=== PATIENT | female | born 1990 | race Hispanic/Latino ===

== ENCOUNTER 2016-11-15 07:08 | Emergency (ER) | payer OTHER ==
[~2016-11-15] VITALS: Ht 154.9 cm; Wt 60.0 kg
[~2016-11-15 07:08] MED LIST: ADVIL200 MG PO; BENTYL20 MG PO; CEFPODOXIME PR200 MG PO; CEPHALEXIN500 MG PO; CIPRO500 MG PO; ENDOCET 5-3251 EACH PO; FLAGYL500 MG PO; FLONASE16 G1 BOTH NARES; IBUPROFEN800 MG PO; KEFLEX500 MG PO; LORTAB 5-325 M1 EACH PO; MACROBID100 MG PO; METHERGINE0.2 MG PO; MUCUS ER600 MG PO; NAPROSYN500 MG PO; NAPROXEN500 MG PO; PERCOCET 5/31 TABLET PO; PRENA1 CHEW TA1.4 MG PO; PRENATAL + DHA1 EACH PO; PRENATAL TABLE1 EAC3 PO; PRILOSEC20 MG PO; ZOFRAN ODT4 MG PO; ZOFRAN ODT8 MG PO; ZOFRAN4 MG PO
[2016-11-15 08:07] LABS: ADD MIUA? YES; BILIRUBIN NEGATIVE; BLOOD SMALL; COLOR YELLOW ((YELLOW)); GLUCOSE (STRIP) NEGATIVE; KETONES NEGATIVE; LEUKOCYTES NEGATIVE; NITRITE NEGATIVE; PROTEIN (STRIP) NEGATIVE; SPECIFIC GRAVITY 1.021 (1.000-1.030); UROBILINOGEN 0.2 MG/DL (0.2-1.0)
[2016-11-15 08:14] LABS: BACTERIA 2+ /HPF; EPITHELIAL CELLS 1+ /HPF; MUCUS TRACE /LPF; RED BLOOD CELLS 0-5 /HPF (0-5)
[2016-11-15 08:24] LABS: HEMATOCRIT 35.3 % (36.0-46.0); MCH 29.4 PG (29.0-34.0); MCHC 32.9 G/DL (30.0-36.0); MCV 89.4 FL (83-99); MEAN PLAT.VOLUME 9.8 uM^3 (9.5-12.4); PLATELET COUNT 247 K/uL (156-360); RBC DIS.WIDTH-CV 12.4 % (11.8-14.6); RBC DIS.WIDTH-SD 40.9 % (39-53); RED BLOOD COUNT 3.95 M/uL (3.80-5.20); WHITE BLOOD COUNT 6.7 K/uL (4.1-10.2)
[2016-11-15 08:33] LABS: CHLORIDE 106 mEq/L (99-109); SODIUM 137 mEq/L (136-147)
[2016-11-15 08:35] LABS: GLUCOSE 100 mg/dL (70-99)
[2016-11-15 08:36] LABS: ANION GAP 7 MEQ/L (2-14)
[2016-11-15 08:37] LABS: TOTAL BILIRUBIN 0.3 mg/dL (0.0-1.0)
[2016-11-15 08:39] LABS: ALKALINE PHOSPHATASE 56 IU/L (3-129); GFR ESTIMATE (CALCULATED) > 59 mL/min/
[2016-11-15 08:40] LABS: UREA NITROGEN (BUN) 14 mg/dL (9-23)
[2016-11-15 08:42] LABS: LIPASE 19 U/L (1.0-51.0)
[2016-11-15 08:51] LABS: QUANTITATIVE HCG < 4.0 MIU/ML
[2016-11-15] MEDS ORDERED: ZOFRAN ODT4 MG PO (09:33)
[2016-11-15 09:40] VITALS: BP 95/59
== END 2016-11-15 09:41 | disposition home or self-care (01) ==
LOC: EME 07:08
PROVIDERS: Nurse Practitioner Family
DX: K59.00 Constipation, unspecified (principal); R10.9 Unspecified abdominal pain
CPT/HCPCS: 74020; 80053; 81003; 83690; 84702; 85027; 99281; 99284

== ENCOUNTER 2017-03-19 18:02 | Emergency (ER) | payer OTHER ==
[~2017-03-19] VITALS: Ht 157.5 cm; Wt 64.5 kg
[2017-03-19 19:07] LABS: ADD MIUA? YES; BILIRUBIN NEGATIVE; BLOOD SMALL; COLOR STRAW ((YELLOW)); GLUCOSE (STRIP) NEGATIVE; KETONES NEGATIVE; LEUKOCYTES NEGATIVE; NITRITE NEGATIVE; PROTEIN (STRIP) NEGATIVE; SPECIFIC GRAVITY 1.012 (1.000-1.030); UROBILINOGEN 0.2 MG/DL (0.2-1.0)
[2017-03-19 19:10] LABS: HEMATOCRIT 36.6 % (36.0-46.0); MCH 31.4 PG (29.0-34.0); MCHC 35.5 G/DL (30.0-36.0); MCV 88.4 FL (83-99); MEAN PLAT.VOLUME 9.1 uM^3 (9.5-12.4); PLATELET COUNT 301 K/uL (156-360); RBC DIS.WIDTH-CV 11.7 % (11.8-14.6); RBC DIS.WIDTH-SD 37.8 % (39-53); RED BLOOD COUNT 4.14 M/uL (3.80-5.20); WHITE BLOOD COUNT 13.2 K/uL (4.1-10.2)
[2017-03-19 19:13] LABS: BACTERIA RARE /HPF; EPITHELIAL CELLS RARE /HPF; MUCUS TRACE /LPF; RED BLOOD CELLS 0-5 /HPF (0-5); UCUL ADDED? NO; WHITE BLOOD CELLS 0-5 /HPF (0-5)
[2017-03-19 19:20] LABS: CHLORIDE 108 mEq/L (99-109); POTASSIUM 3.9 mEq/L (3.7-5.4); SODIUM 139 mEq/L (136-147)
[2017-03-19 19:21] LABS: GLUCOSE 88 mg/dL (70-99)
[2017-03-19 19:23] LABS: ANION GAP 8 MEQ/L (2-14)
[2017-03-19 19:25] LABS: GFR ESTIMATE (CALCULATED) > 59 mL/min/
[2017-03-19 19:26] LABS: UREA NITROGEN (BUN) 13 mg/dL (9-23)
[2017-03-19 19:34] LABS: QUANTITATIVE HCG < 4.0 MIU/ML
[2017-03-19] MEDS ORDERED: FLEXERIL10 MG PO (21:16)
[2017-03-19] MEDS ORDERED: MOTRIN800 MG PO (21:16)
[2017-03-19 21:31] VITALS: BP 119/82
== END 2017-03-19 21:34 | disposition home or self-care (01) ==
LOC: EME 18:02
PROVIDERS: Emergency Medicine
DX: S20.219A Contusion of unspecified front wall of thorax, initial encounter (principal); E04.1 Nontoxic single thyroid nodule; V49.40XA Driver injured in collision with unspecified motor vehicles in traffic accident, initial encounter; Y92.410 Unspecified street and highway as the place of occurrence of the external cause; J45.909 Unspecified asthma, uncomplicated
CPT/HCPCS: 71260; 72125; 80048; 81003; 84702; 85027; 99281; 99285; J7120